=== PATIENT | female | born 1975 | race Caucasian/White ===

== ENCOUNTER 2019-08-02 09:04 | Emergency (ER) | payer MEDICARE, MEDICAID ==
[~2019-08-02] VITALS: Ht 160 cm; Wt 54.0 kg
[2019-08-02 11:35] LABS: BASOPHILS % (AUTO) 0.3 % (0-1); EOSINOPHILS % (AUTO) 0.1 % (0-6); HEMOGLOBIN 8.6 g/dl (12.0-16.0); LYMPHOCYTES # (AUTO) 0.8 X10'3 (1.1-4.8); LYMPHOCYTES % (AUTO) 7.8 % (21-51); MEAN CORPUSCULAR HGB CONC 33.3 g/dL (33.0-36.5); MEAN CORPUSCULAR VOLUME 84.1 FL (78-98); MEAN PLATELET VOLUME 7.6 FL (7.4-10.4); MONOCYTES # (AUTO) 0.5 X10'3 (0-0.9); MONOCYTES % (AUTO) 5.3 % (2-12); NEUTROPHILS # (AUTO) 8.6 X10'3 (1.8-7.7); NEUTROPHILS % (AUTO) 86.5 % (42-75); PLATELET COUNT 414 X10'3 (140-440); RED BLOOD COUNT 3.09 X10'6 (4.20-5.60); RED CELL DISTRIBUTION WIDTH 13.8 % (11.5-14.5)
[2019-08-02 11:52] LABS: ALANINE AMINOTRANSFERASE 12 U/L (12-78); ALBUMIN 2.7 G/DL (3.4-5.0); ALBUMIN/GLOBULIN RATIO 0.7 (1.1-1.5); ALKALINE PHOSPHATASE 89 IU/L (46-116); ANION GAP 9 (8-16); ASPARTATE AMINO TRANSFERASE 12 U/L (10-37); BILIRUBIN,TOTAL 0.8 MG/DL (0.1-1.0); BLOOD UREA NITROGEN 9 MG/DL (7-18); BUN/CREATININE RATIO 12.7 (6.6-38.0); C-REACTIVE PROTEIN 1.87 MG/DL (0.0-0.5); CALCIUM 8.6 MG/DL (8.5-10.1); CHLORIDE 97 MMOL/L (99-107); CREATININE 0.71 MG/DL (0.40-0.90); GLUCOSE 110 MG/DL (70-104); POTASSIUM 3.8 MMOL/L (3.5-5.1); SODIUM 133 MMOL/L (135-145); TOTAL CARBON DIOXIDE 26.6 MMOL/L (24-32); TOTAL PROTEIN 6.7 G/DL (6.4-8.2); eGFR 89 ML/MIN
[2019-08-02 12:25] LABS: PARTIAL THROMBOPLASTIN TIME 26 SECONDS (22-32)
[2019-08-02] MEDS ORDERED: normal saline 1000ML IV soln IVB ONE (13:35)
[2019-08-02 13:51] LABS: URINE HCG NEGATIVE (NEG)
[2019-08-02 13:55] LABS: CLARITY,URINE CLEAR (Clear); COLOR,URINE YELLOW (Yellow); GLUCOSE, URINE NEGATIVE (Neg); KETONES,URINE 15 mg/dl (Neg); LEUKOCYTE ESTERASE ,URINE NEGATIVE (Neg); NITRITES, URINE NEGATIVE (Neg); OCCULT BLOOD,URINE LARGE (Neg); PH,URINE 5.5 (4.8-8.0); PROTEIN,URINE NEGATIVE (Neg); UROBILINOGEN,URINE 0.2 E.U/dL (0.2-1.0)
[2019-08-02 13:57] LABS: URINE AMPHETAMINE SCREEN NEGATIVE (Neg); URINE BARBITUATE SCREEN NEGATIVE (Neg); URINE BENZODIAZEPINES SCREEN NEGATIVE (Neg); URINE CANNABINOID SCREEN NEGATIVE (Neg); URINE COCAINE SCREEN NEGATIVE (Neg); URINE METHADONE SCREEN NEGATIVE (Neg); URINE OPIATE SCREEN NEGATIVE (Neg); URINE PHENCYCLIDINE SCREEN NEGATIVE (Neg)
[2019-08-02 13:58] LABS: UA COLLECTION TYPE CLN CATCH MIDSTREAM
[2019-08-02 14:02] LABS: BACTERIA,URINE 2+ /HPF (Neg); RBC,URINE 0-2 /HPF (0-2); SQUAMOUS EPITHELIAL CELL,UR MANY /LPF (FEW); WBC,URINE 0-4 /HPF (0-4)
[2019-08-02 15:17] LABS: HEMOGLOBIN 8.1 g/dl (12.0-16.0); MEAN CORPUSCULAR HEMOGLOBIN 28.9 PG (27.0-31.0); MEAN CORPUSCULAR HGB CONC 33.8 g/dL (33.0-36.5); MEAN CORPUSCULAR VOLUME 85.7 FL (78-98); MEAN PLATELET VOLUME 7.7 FL (7.4-10.4); PLATELET COUNT 382 X10'3 (140-440); RED BLOOD COUNT 2.81 X10'6 (4.20-5.60); RED CELL DISTRIBUTION WIDTH 13.9 % (11.5-14.5); WHITE BLOOD COUNT 8.8 X10'3 (4.5-11.0)
[2019-08-02] MEDS ORDERED: PRED20TA PO (17:20)
[2019-08-02 18:06] VITALS: BP 126/88
== END 2019-08-02 18:15 | disposition home or self-care (01) ==
LOC: ER 09:04
DX: R21 Rash and other nonspecific skin eruption (principal); M79.604 Pain in right leg; M79.605 Pain in left leg; Z79.899 Other long term (current) drug therapy
CPT/HCPCS: 36415; 71045; 80053; 80305; 81001; 81025; 84443; 85025; 85027; 85384; 85610; 85651; 85730; 86140; 93970; 99285; J7030

== ENCOUNTER 2019-10-20 02:35 | Emergency (ER) | payer MEDICARE, MEDICAID ==
[~2019-10-20] VITALS: Ht 160 cm; Wt 50.5 kg
[2019-10-20] MEDS ORDERED: LORazepam 1 MG tablet PO ONE (02:55)
[2019-10-20 03:18] VITALS: BP 134/80
== END 2019-10-20 03:18 | disposition home or self-care (01) ==
LOC: ER 02:36
DX: F41.9 Anxiety disorder, unspecified (principal); F20.9 Schizophrenia, unspecified
CPT/HCPCS: 99283

== ENCOUNTER 2024-10-18 23:59 | Emergency (ER) | payer MEDICARE, MEDICAID ==
[~2024-10-18] VITALS: Ht 160 cm; Wt 55.2 kg
--- NOTE | 2024-10-19 01:24 | Physician Documentation ---
History of Present Illness ~ Chief Complaint: Medical Clearance Stated Complaint: SCHIZOPHRENIA Time Seen by MD: 01:23 Primary Medical Doctor: [facility] Mode of Arrival: POV HPI Patient presents to the emergency room for evaluation of psychiatric disturbance. History of schizophrenia. Patient states she is feeling at her wits end and had a recent nightmare. She recently DC her medications but started them again this evening. She is unfamiliar with [facility] and does not have a psychiatrist. She does not feel safe for discharge. Tetanus within 5 years?: No Medication Reconciliation Allergies: Coded Allergies: No Known Allergies (Unverified , 08/02/19) Scheduled Buspirone Hcl* (Buspar*), 1 TAB PO TID, (Reported) Cholecalciferol (Vitamin D3) (Vitamin D3), 1 CAP PO DAILY, (Reported) Sertraline HCl (Sertraline HCl), 1 TAB PO DAILY, (Reported) Miscellaneous Medications Paliperidone (Paliperidone ER), 1 TAB PO, (Reported) Past Medical History Past Medical History: Anxiety, Schizophrenia Past Surgical History: noncontributory Alcohol Use: None Drug Use: none Lives with: Alone Lives In: Home Review of Systems ROS All review of systems negative except as per HPI Physical Exam Vital Signs: Temperature: 98.2, Source: Temporal, Heart Rate: 81, Respiratory Rate: 15, BP: 151/100, Pulse Oximetry: 99, Weight: 55.200 Oxygen Flow Rate: 0 Physical Exam General: Patient is awake, alert, oriented x4, anxious Head: Normocephalic and atraumatic. Eyes: Conjunctival normal. EOMI. PERRL. ENT: Mucous membranes moist. Neck: Supple, trachea is midline. Chest: Clear to auscultation bilaterally without rales, rhonchi, or wheezes. There is no accessory muscle use or retractions. Cardiac: RRR without murmurs, gallops, or rubs. Psych: Anxious, poor eye contact, gravely disabled Progress Results/Orders Results/Orders Orders - GARFIELD HANCOCK MD Urinalysis (10/19/24 01:37) Hcg, Ur Ql (10/19/24 01:37) Drug Screen, Urine (10/19/24 01:37) Med Rec (10/19/24 01:37) 1799.11 (10/19/24 01:37) Close Observation Level (10/19/24 01:37) Covid19 Binax Poc Result Entry (10/19/24 01:37) Substance Use Navigator (10/19/24 01:37) Regular Diet (10/19/24 Breakfast) Completed Orders - GARFIELD HANCOCK MD Cbc/Diff (10/19/24 01:37) Ethanol (10/19/24 01:37) TSH (10/19/24 01:37) BMP (10/19/24 01:37) Vital Signs 10/19/24 10/19/24 10/19/24 00:10 01:12 01:13 Temp 98.2 Pulse 92 81 Resp 18 17 15 B/P (MAP) 144/97 151/100 (117) Pulse Ox 98 99 O2 Flow Rate 0 Laboratory Tests Test 10/19/24 01:43 10/19/24 01:56 White Blood Count 4.4 L Red Blood Count 4.03 L Hemoglobin 12.3 Hematocrit 35.9 Mean Corpuscular Volume 89.1 Mean Corpuscular Hemoglobin 30.4 Mean Corpuscular Hemoglobin Concent 34.2 Red Cell Distribution Width 12.5 Platelet Count 138 L Mean Platelet Volume 9.5 Neutrophils (%) (Auto) 73.6 Lymphocytes (%) (Auto) 17.4 L Monocytes (%) (Auto) 8.5 Eosinophils (%) (Auto) 0.2 Basophils (%) (Auto) 0.3 Neutrophils # (Auto) 3.2 Lymphocytes # (Auto) 0.8 L Monocytes # (Auto) 0.4 Eosinophils # (Auto) 0.0 Basophils # (Auto) 0.0 CBC Comment Sodium Level 131 L Potassium Level 4.0 Chloride Level 98 L Carbon Dioxide Level 24.7 Anion Gap 8 Blood Urea Nitrogen 8 Creatinine 0.72 Estimated GFR/1.73 m2 86 BUN/Creatinine Ratio 11.1 Glucose Level 95 Calcium Level 8.8 Albumin 3.9 Thyroid Stimulating Hormone (TSH) 2.43 Chemistry Comments Ethyl Alcohol Level < 10 Medical Decision Making Findings Patient presents to the emergency room for evaluation of psychiatric disturbance. Although she does not endorse suicidal or homicidal ideation I do believe she is gravely disabled. 1799 placed. Labs reviewed and there was no evidence of major pathologic derangements and she is medically cleared for [facility] evaluation Departure Disposition: 30 STILL A PATIENT Impression: Primary Impression: Gravely disabled Condition: Guarded Referrals: NO PRIMARY CARE PROVIDER (PCP) Signature Scribe Signature: No scribe Attestation: The note accurately reflects work and decisions made by me.Garfield Hancock MD 10/19/24 02:43 GARFIELD HANCOCK MD October 19, 2024 01:24
[2024-10-19 01:55] LABS: BASOPHILS % (AUTO) 0.3 % (0-1); EOSINOPHILS % (AUTO) 0.2 % (0-6); HEMATOCRIT 35.9 % (35.0-45.0); HEMOGLOBIN 12.3 g/dl (12.0-16.0); LYMPHOCYTES # (AUTO) 0.8 X10'3 (1.1-4.8); LYMPHOCYTES % (AUTO) 17.4 % (21-51); MEAN CORPUSCULAR HEMOGLOBIN 30.4 PG (27.0-31.0); MEAN CORPUSCULAR HGB CONC 34.2 g/dL (33.0-36.5); MEAN CORPUSCULAR VOLUME 89.1 FL (78-98); MEAN PLATELET VOLUME 9.5 FL (7.4-10.4); MONOCYTES # (AUTO) 0.4 X10'3 (0-0.9); MONOCYTES % (AUTO) 8.5 % (2-12); NEUTROPHILS # (AUTO) 3.2 X10'3 (1.8-7.7); NEUTROPHILS % (AUTO) 73.6 % (42-75); PLATELET COUNT 138 X10'3 (140-440); RED BLOOD COUNT 4.03 X10'6 (4.20-5.60); RED CELL DISTRIBUTION WIDTH 12.5 % (11.5-14.5); WHITE BLOOD COUNT 4.4 X10'3 (4.5-11.0)
[2024-10-19 02:17] LABS: ALBUMIN 3.9 G/DL (3.4-5.0); ANION GAP 8 (8-16); BLOOD UREA NITROGEN 8 MG/DL (7-18); BUN/CREATININE RATIO 11.1 (10.0-20.0); CALCIUM 8.8 MG/DL (8.5-10.1); CHLORIDE 98 MMOL/L (99-107); CREATININE 0.72 MG/DL (0.40-0.90); ETHANOL < 10 MG/DL (<10); GLUCOSE 95 MG/DL (70-104); SODIUM 131 MMOL/L (135-145); THYROID STIMULATING HORMONE 2.43 ulU/ml (0.34-4.50); TOTAL CARBON DIOXIDE 24.7 MMOL/L (24-32); eCRCL 78 ML/MIN; eGFR 86 ML/MIN
[2024-10-19] MEDS ORDERED: PALI6TAB6 PO (02:37)
[2024-10-19] MEDS ORDERED: SERT-433 PO (02:37)
[2024-10-19] MEDS ORDERED: CHOL20002 PO (02:37)
[2024-10-19] MEDS ORDERED: BUSP5TAB3 PO (02:37)
[2024-10-19 02:52] LABS: BILIRUBIN,URINE NEGATIVE (Neg); CLARITY,URINE CLEAR (Clear); COLOR,URINE YELLOW (Yellow); GLUCOSE, URINE NEGATIVE (Neg); KETONES,URINE TRACE mg/dl (Neg); LEUKOCYTE ESTERASE ,URINE NEGATIVE (Neg); NITRITES, URINE NEGATIVE (Neg); OCCULT BLOOD,URINE MODERATE (Neg); PROTEIN,URINE NEGATIVE (Neg); UA COLLECTION TYPE CLN CATCH MIDSTREAM; UROBILINOGEN,URINE 0.2 E.U/dL (0.2-1.0)
[2024-10-19 02:53] LABS: URINE HCG NEGATIVE (NEG)
[2024-10-19 03:00] LABS: BACTERIA,URINE 1+ /HPF (Neg); SQUAMOUS EPITHELIAL CELL,UR MODERATE /LPF (FEW); URINE AMPHETAMINE SCREEN NEGATIVE (Neg); URINE BARBITUATE SCREEN NEGATIVE (Neg); URINE BENZODIAZEPINES SCREEN NEGATIVE (Neg); URINE CANNABINOID SCREEN NEGATIVE (Neg); URINE COCAINE SCREEN NEGATIVE (Neg); URINE METHADONE SCREEN NEGATIVE (Neg); URINE OPIATE SCREEN NEGATIVE (Neg); URINE PHENCYCLIDINE SCREEN NEGATIVE (Neg); WBC,URINE NONE SEEN /HPF (0-4)
[2024-10-19 06:40] VITALS: BP 120/62; PULSE 76; RESP 16; O2SAT 100
[2024-10-19] MEDS: cholecalciferol (vitamin D3) 1,000 unit (25mcg) tablet PO SCH (09:47)
[2024-10-19] MEDS: busPIRone 5mg tablet PO SCH (09:47)
[2024-10-19] MEDS: PALIPERIDONE 3 MG TAB.ER.24 PO SCH (09:47)
[2024-10-19] MEDS: sertraline 50mg tablet PO SCH (09:47)
[2024-10-19 10:16] VITALS: TEMP 98.2
== END 2024-10-19 10:18 | disposition home or self-care (01) ==
LOC: ER 23:59
DX: F79 Unspecified intellectual disabilities (principal); F20.9 Schizophrenia, unspecified; F41.9 Anxiety disorder, unspecified; Z20.822 Contact with and (suspected) exposure to COVID-19
CPT/HCPCS: 36415; 80048; 80305; 81001; 81025; 84443; 85025; 87811; 99284; G0480; 80320